=== PATIENT | male | born 1965 | race Caucasian/White ===

== ENCOUNTER 2017-01-24 07:46 | Day surgery (SDC) | payer OTHER ==
[~2017-01-24] VITALS: Ht 182.9 cm; Wt 76.9 kg
[~2017-01-24 07:46] MED LIST: CEPHALEXIN500 M1 PO; DOXYCYCLINE 10100 MG PO; NORCO 325 MG-51 TAB PO
[2017-01-24 08:08] VITALS: BP 124/95; PULSE 83; TEMP 97.8
[2017-01-24 09:25] VITALS: BP 108/82; PULSE 65; TEMP 97.8
[2017-01-24 09:40] VITALS: BP 117/71; PULSE 74
== END 2017-01-24 10:10 | disposition home or self-care (01) ==
LOC: SDCO 07:46
DX: Z12.11 Encounter for screening for malignant neoplasm of colon (principal); D12.5 Benign neoplasm of sigmoid colon; D12.8 Benign neoplasm of rectum; K57.30 Diverticulosis of large intestine without perforation or abscess without bleeding
CPT/HCPCS: J2250; J3010

== ENCOUNTER → 2018-03-25 | Outpatient (CLI) | payer BC | LOC: COL.LAB 11:58 | DX: Z87.891 Personal history of nicotine dependence (principal) ==

== ENCOUNTER 2020-11-17 06:05 | Day surgery (SDC) | payer BC ==
[~2020-11-17] VITALS: Ht 182.9 cm; Wt 68.1 kg
[2020-11-17] MEDS ORDERED: MULTIVITAMIN200 MCG PO (06:27)
[2020-11-17 06:28] VITALS: BP 115/89; PULSE 81; TEMP 97.8
[2020-11-17 08:20] VITALS: BP 111/82; PULSE 73; TEMP 97.9
--- NOTE | 2020-11-17 08:20 | NUR ---
Patient returned to bay 2 via cart. Patient is dowsy, wakes easily to name. Postop vital signs started and stable. Patient sitting up in chair, denies discomfort. Patient request pepsi and pudding. Will continue to monitor.
[2020-11-17 08:35] VITALS: BP 123/83; PULSE 72
[2020-11-17 08:50] VITALS: BP 109/84; PULSE 64
--- NOTE | 2020-11-17 08:50 | NUR ---
Patient is sitting up in chair. Vital signs remain stable. Physician came in room to speak with patient. Reviewed discharge instruction and education material with patient and family, both verbalized undertanding. D/C IV with no complications. Instructed patient to dress and then call for transportation.
--- NOTE | 2020-11-17 09:09 | NUR ---
Patient was transfered to personal vehicle by Renetta LOPEZ via wheelchair accompanied by significant other.
--- NOTE | 2020-11-17 09:10 | NUR ---
Patient is sitting up in chair, denies discomfort. Tolerating food and drink well. Vital signs remain stable. Will continue to monitor.
== END 2020-11-17 09:10 | disposition home or self-care (01) ==
LOC: SDCO 06:05
DX: Z12.11 Encounter for screening for malignant neoplasm of colon (principal); D12.0 Benign neoplasm of cecum; K63.5 Polyp of colon; K57.30 Diverticulosis of large intestine without perforation or abscess without bleeding; F17.210 Nicotine dependence, cigarettes, uncomplicated; Z20.822 Contact with and (suspected) exposure to COVID-19
CPT/HCPCS: J2704; J7030

== ENCOUNTER → 2021-04-23 | Outpatient (CLI) | payer BC ==
[~2021-04-23] MED LIST changes: +MULTIVITAMIN200 MCG PO
== END ==
LOC: MHCPAIN 09:45
DX: M47.812 Spondylosis without myelopathy or radiculopathy, cervical region (principal); M54.12 Radiculopathy, cervical region; G89.29 Other chronic pain
CPT/HCPCS: G0463

== ENCOUNTER → 2021-05-10 | Outpatient (CLI) | payer BC | LOC: MHCPAIN 09:21 | DX: M47.812 Spondylosis without myelopathy or radiculopathy, cervical region (principal); M54.12 Radiculopathy, cervical region | CPT/HCPCS: J1100; Q9967 ==

== ENCOUNTER → 2021-05-22 | Outpatient (CLI) | payer BC | LOC: MHCPAIN 14:38 | DX: M47.812 Spondylosis without myelopathy or radiculopathy, cervical region (principal); M54.12 Radiculopathy, cervical region; M25.511 Pain in right shoulder; M96.1 Postlaminectomy syndrome, not elsewhere classified | CPT/HCPCS: G0463 ==

== ENCOUNTER → 2021-08-21 | Outpatient (CLI) | payer BC | LOC: MHCPAIN 13:03 | DX: M47.892 Other spondylosis, cervical region (principal); M54.12 Radiculopathy, cervical region | CPT/HCPCS: G0463 ==

== ENCOUNTER 2021-11-28 11:28 | Inpatient (IN) | payer BC ==
[~2021-11-28] VITALS: Ht 182.9 cm; Wt 71.7 kg
--- NOTE | 2021-11-28 12:45 | NUR ---
ADMISSION NOTE DONE. PATIENT CAME IN AROUND 1245PM FROM [facility]. SPOUSE IS PRESENT. PATIENT ABLE TO UNDERSTAND BUT SPEECH IS AN ISSUE.PATIENT IS [place] IN BOTH EARS AND NEED TO SPEAK UP SLIGHTLY LOUDER THAN NORMAL. WEAK ON LEFT SIDE OF BODY.LUNG SOUND CLEAR BUT VERY SHALLOW BREATH. PATIENT IS A SMOKER (1 PACK A DAY AND CHEW) PATIENT HAS UPPER AND LOWER DENTURES(PARTICAL). TEST POSITIVE FOR DRUGS, HAD SUICIDE IDEA YESTERDAY BUT TODAY HE HAS NONE .SUICIDE QUESTION WAS ASK AND HE SCORE A MODERATE RISK. SPOKE WITH BOO AND INFORM DR ANTHONY THAT PATIENT WAS HERE. ORDER LUNCH FOR HIM. SKIN CLEAR, HAS TWO BANDAGE FROM IV SITE.CALL LIGHT IN REACH, BEDSTAND IN REACH. INSTRUCTED TO CALL IF THERE IS ANY CONCERN OR QUESTION.
[2021-11-28] MEDS ORDERED: ASPIRIN 81M81 MG/TA2 PO (13:01)
[2021-11-28] MEDS ORDERED: LIPITOR20 MG PO (13:02)
[2021-11-28] MEDS ORDERED: PLAVIX 75MG TAB75 MG PO (13:02)
--- NOTE | 2021-11-28 16:21 | NUR ---
PLACE A NICODERM PATCH ON RIGHT UPPER BACK. PATIENT IS AWARE THAT HE IS UNABLE TO SPOKE. DR ANTHONY INFORM THAT PSYCOLOGIST WILL BE SEENING PATIENT SINCE HE SCORE HIGH ON HIS SUICIDE SCREENING.
[2021-11-28 17:27] VITALS: BP 121/85; PULSE 95; TEMP 97.4
[2021-11-28 18:18] VITALS: BP 121/85; PULSE 95; TEMP 97.4
--- NOTE | 2021-11-28 18:30 | NUR ---
RECEIVED CHANGE OF SHIFT REPORT FROM DAY SHIFT RN. CONTINUES ON SUICIDE PRECAUTIONS, SITTER PRESENT DURING REPORT. PATIENT RESTING IN BED, FAMILY IN ROOM CURRENTLY, PERMITTED BY ADMIN WITH UNDERSTANDING THEY ARE TO LEAVE BEFORE 1999. EXIT ALARM ON.
--- NOTE | 2021-11-28 19:10 | NUR ---
PATIENT ON SUCICAL PRECAUTION,AIRPLANE TESTER IS AWARE AND SECURITY AWARE. ALL CLOTHS WAS TAKING OUT AND RODEO CLOWN BY SECURITY. CORD WAS WRAP UP. TRASH BAG CHANGE TO PAPERBACK. SPOUSE IS AWARE THAT HE IS ON PRECAUTION AND WILL CALL TOMORROW TO SEE IF SHE ABLE TO COME AND VISIT. I SAID TO CALL BEFORE COMING SINCE OF THE PRECAUTION. SHE UNDERSTOOD. FAMILY (SON,SON- AND PATIENT DAD CAME TO VISIT. WE SPOKE WITH HOLLIE AND SHE ONLY TONIGHT THEY CAN VISIT BUT A SHORT VISIT WITH SITTER. SPOUSE CAN STAY UNTIL 8PM BUT AFTER THAT SHE HAS TO LEAVE. PER KAIDEN, SHE WILL NOTIFIED SPOUSE ABOUT VISITING POLICY.
[2021-11-28 22:00] VITALS: BP 120/81; PULSE 101
--- NOTE | 2021-11-29 00:29 | NUR ---
SUICIDE PRECAUTIONS CONTINUES, SEE [facility] FOR DOCUMENTATION PER HOSP P/P. PATIENT SLEEPING WITH NONLABORED/EVEN RESPIRATIONS.
--- NOTE | 2021-11-29 02:55 | NUR ---
PATIENT WOKE UP AND USED URINAL AFTER SPEAKING WITH STAFF REGARDING URGE TO VOID. STAFF OBSERVED URINE DARK BUT PATIENT VOIDED LARGE AMOUNT. DENIED ANY OTHER NEEDS AT THIS TIME.
[2021-11-29 06:01] VITALS: BP 131/88; PULSE 90; TEMP 97.5
--- NOTE | 2021-11-29 07:23 | NUR ---
CHANGE OF SHIFT REPORT GIVEN TO DAY SHIFT RNSTEPHANIE.
--- NOTE | 2021-11-29 08:27 | NUR ---
REPORT RECEIVED FROM JOHN YOUNGER; PATIENT CURRENTLY SLEEPING AND HAS BEEN ALL NIGHT. PATIENT UNDER SUICIDE PRECAUTIONS AND REQUIRES SITTER AND 15 MINUTE CHARTING.
--- NOTE | 2021-11-29 09:44 | NUR ---
Initial visit attempt; Patient unable to respond at this time, Smart Energy Specialist left a card with patient's nurse offering Hope, Spiritual Care and God's blessings. I later spoke with family member who requested prayer for patient. Smart [employer] Specialist will do so.
--- NOTE | 2021-11-29 10:31 | NUR ---
LITZY met with the patient to complete intake, as the patient is new to [facility]. The patient is currently on suicide precautions. The patient lives in a house in [place] with his fiance, Kerry Perez (ph#[phone]). He states that he has three steps to get into his home and he has grab bars around the toliet and in the shower. He reports independence with ADLs and has a cane. The patient's primary care provider is Yaima Brown APRN and he receives his medications from [facility]. The patient does not have a DPOA-HC and he was not interested in completing one at this time. He states that he is not , but plans on marrying Kerry after he gets out of the hospital. He states that he has three children: Aníbal (ph#[phone]), Lonny, and Kimber. LITZY informed him how his children would be his legal next of kin. The patient verbalized understanding and is okay with this. The [facility] Doctor then entered the room.
--- NOTE | 2021-11-29 10:39 | NUR ---
VERBAL ORDER TO TAKE PT OFF OF OBSERVATION STATUS AND MOVE PT ROOM TO 338.
--- NOTE | 2021-11-29 10:47 | NUR ---
PT BELONGINGS MOVED TO ROOM 338, REPORT RECIEVED FROM JOHN BROWN. THIS RN WILL TAKE OVER PT CARE AT THIS TIME.
--- NOTE | 2021-11-29 13:13 | NUR ---
COMPLETE COLOSTOMY DRESSING CHANGE WAS DONE AT THIS TIME. FAMILY WAS AT BEDSIDE, EDUCATED ON HOW TO COMPLETE DRESSING/BAG CHANGES AT HOME.
--- NOTE | 2021-11-29 17:16 | NUR ---
PT RESTING IN BED WITH FAMILY AT BEDISDE. COMPLAINS OF ITHCHING TO ABDOMEN, MEDICATION GIVEN PER eMAR. WILL CONTINUE TO MONITOR.
[2021-11-29 17:26] VITALS: BP 124/84; PULSE 66; TEMP 97.5
[2021-11-30 05:31] VITALS: BP 107/72; PULSE 87; TEMP 97.4
--- NOTE | 2021-11-30 05:40 | NUR ---
pt has been sleeping most of shift, uses call light appropriately when he needs to void, using urinal as pt is very unsteady, no control of left side. bed exit alarm on, pt set alarm off x1 when he rolled over in bed and left leg fell to floor. RN had to wake him to help him reposition. noted in report no BM reported since 11/27, offered bowel movers @, pt refused, stated he doesn't feel constipated at this time. benadryl requested and given for itching x1
--- NOTE | 2021-11-30 06:49 | NUR ---
BEDSIDE REPORT DONE ORDER. PATIENT RESTING IN BED WITH CALL LIGHT IN REACH
--- NOTE | 2021-11-30 09:29 | NUR ---
Initial visit; Patient states he is doing a lot better today and was receptive to prayer this morning and requested that Director Of Student Financial Aid keep him in her prayers. Director Of Student Financial Aid will continue to look in on Anant.
--- NOTE | 2021-11-30 09:41 | NUR ---
Pt off the unit to work with OT
--- NOTE | 2021-11-30 10:10 | NUR ---
ASSESSMENT DONE ORDER. PATIENT CONTINUE TO BE WEAK ON LEFT SIDE. UNABLE TO SEE ON LEFT EYE. ABLE TO EAT WITH OUT ANY ISSUE. LUNG CLEAR IN ALL LOBES. BOWEL SOUND ACTIVE. PATIENT NEED 2 PERSON ASSISTANCE IN GETTING UP FROM BED. LEFT SIDE IS FLACCID.CALL LIGHTN IN REACH,
--- NOTE | 2021-11-30 11:07 | NUR ---
Pt with mild phlebitis to Right AC from previous IV. This IV was dc'd by the transferring hospital prior to IPR admission. Ice pack placed over right ac per Dr. Sandoval. Will continue to monitor
--- NOTE | 2021-11-30 16:31 | NUR ---
NOTICES PATIENT LEND TO HIS RIGHT ALOT. SIDE RAIL WAS PLACE UP FOR PERVENTION.
[2021-11-30 16:47] VITALS: BP 140/82; PULSE 92; TEMP 97.8
--- NOTE | 2021-11-30 18:58 | NUR ---
Significant other here to visit pt. She alerted nurse that pt had some bleeding scratches on his left arm. Dried blood cleaned from left forearm with normal saline. Multiple small abrasions noted from scratching. Transparent dressing applied over scratches to protect skin. Abrasions were not noted to have active bleeding. PRN Benadryl was administered approx 1 hr ago. Will continue to monitor
--- NOTE | 2021-11-30 19:45 | NUR ---
PT RESTING IN BED. GIRLFRIEND AT BEDSIDE. VERY SUPPORTIVE. PT FLACCID ON LT SIDE. PT DENIES ANY VISULA PROBLEMS. NICODERM PATCH TO LT SHOULDER BUT PT STILL WANTS A CIGARETTE. DENIES PAIN. CALL LIGHT IN REACH. BED ALARM SET.
--- NOTE | 2021-11-30 20:55 | NUR ---
PT HAS BEEN CALM AND COOPERATIVE TONIGHT. VTE ASA AND PLAVIX.
--- NOTE | 2021-12-01 00:24 | NUR ---
PT SLEEPING. NO DISTRESS.
[2021-12-01 05:35] VITALS: BP 113/79; PULSE 68; TEMP 98
--- NOTE | 2021-12-01 10:37 | NUR ---
PATIENT DOING WELL THIS MORNING. MORNING ASSESSMENTS COMPLETED. RASH NOTED TO MULTIPLE BODY SITES, TOPICAL CREAM APPLIED PER EMAR. TAKES MEDS WHOLE WITHOUT ISSUE. GOOD APPETITE. MODERATE LEFT SIDED WEAKNESS OBSERVED WITH TRANSFERS AND TOILETING. PATIENT REQUIRES 1-2 ASSIST WITH AMBULATING AND ADLS AT THIS TIME. PARTICIPATED IN THERAPY. CONTINENT OF B/B. A&O X4. VITALS WNL.
[2021-12-01 18:00] VITALS: BP 125/44; PULSE 93; TEMP 97.5
--- NOTE | 2021-12-01 19:08 | NUR ---
PT RESTING IN BED VISITING WITH BRENNAN. VERY SUPPORTIVE. LT SIDE FLACCID. NO VISUAL DEFICITS PER PT. DENIES PAIN. PT CALM AND COOPERATIVE. CALL LIGHT IN REACH. BED ALARM SET.
--- NOTE | 2021-12-01 20:50 | NUR ---
GAVE MELATONIN FOR SLEEP. PT STILL ITCHING QUITE A BIT. TOO SOON FOR BENADRYL.
--- NOTE | 2021-12-02 02:43 | NUR ---
PT SLEEPING. NO DISTRESS.
--- NOTE | 2021-12-02 05:54 | NUR ---
PT HAS SLEPT WELL THIS SHIFT. NO DISTRESS.
[2021-12-02 05:55] VITALS: BP 124/77; PULSE 84; TEMP 98.1
--- NOTE | 2021-12-02 06:48 | NUR ---
Shift report received from bilingual hr generalist RN
--- NOTE | 2021-12-02 09:46 | NUR ---
Pt resting supine in bed. HOB elevated approx 30 degrees. Pt. reported some itching to rash areas this morning. Benadryl was given, betamethasone crm. applied as ordered. He feels no change in the rash. No pain or discomfort. He denies additional needs at this time. Call light is within his reach. Bed alarm is on
--- NOTE | 2021-12-02 11:26 | NUR ---
Pt assisted up to recliner using platform walker. Pt. required max A of 2 people for dressing and transferring to chair. He denies pain/discomfort. Significant other is in the room to visit. Call light is within his reach
[2021-12-02 17:30] VITALS: BP 119/79; PULSE 94; TEMP 98.3
[2021-12-03 05:05] VITALS: BP 126/96; PULSE 92; TEMP 98.4
--- NOTE | 2021-12-03 05:20 | NUR ---
PT HAS SLEPT THROUGH THE NIGHT. NO DISTRESS.
[2021-12-03 06:30] LABS: BASO # 0.1 K/mm3 (0.0-0.2); BASO % 0.8 % (0.0-2.0); EOS # 0.5 K/mm3 (0.0-0.7); GRAN # 5.1 K/mm3 (1.4-6.5); GRAN % 65.3 % (42.2-75.2); HEMATOCRIT 46.2 % (42.0-52.0); HEMOGLOBIN 15.6 g/dl (13.5-18.0); LYMPH # 1.5 K/mm3 (1.2-3.4); LYMPH % 19.2 % (20.0-51.0); MEAN CELL VOLUME 91 fl (80.0-100.0); MEAN CORPUSCULAR HEMOGLOBIN 31 pg (27-31); MEAN CORPUSCULAR HGB CONC 34 g/dl (33.0-37.0); MEAN PLATELET VOLUME 10.9 fl (7.4-10.4); MONO # 0.6 K/mm3 (0.1-0.6); MONO % 8.1 % (1.7-9.3); PLATELET COUNT 221 K/mm3 (130-400); RED BLOOD COUNT 5.08 M/mm3 (4.20-5.60); REDCELL DISTRIBUTION WIDTH-CV 13.8 % (11.5-14.5)
[2021-12-03 07:08] LABS: ALBUMIN 3.3 gm/dL (3.5-5.0); BILIRUBIN,TOTAL 0.9 mg/dL (0.2-1.2); CALCIUM 9.1 mg/dL (8.4-10.2); CREATININE, serum 0.8 mg/dL (0.72-1.25); POTASSIUM 4.4 mmol/L (3.5-4.5); TOTAL PROTEIN 6.1 gm/dL (6.2-8.1)
--- NOTE | 2021-12-03 10:56 | NUR ---
LITZY met with the patient to follow up after the weekend. The patient states that he is doing alright. The patient states that the weekend was long, but he is liking therapy. He is hopeful to move forward and be able to go home soon. He states that he has a grandson that is due soon and a granddaughter's birthday is coming up. He had no concerns for LITZY at this time.
--- NOTE | 2021-12-03 13:55 | NUR ---
Admission QIM scores were reviewed by the team. Code of 3 chosen for eating was determined by team discussion to be the most usual performance for this patient during the assessment period. Code of 2 chosen for toilet hygiene was determined by team discussion to be the most usual performance for this patient during the assessment period. Code of 2 chosen for toilet transfers was determined by team discussion to be the most usual performance for this patient during the assessment period. Code of 3 for sit to stand was determined by team discussion to be the most usual performance for this patient during the assessment period. Code of 2 for chair/bed to chair transfers was determined by team discussion to be the most usual performance for this patient during the assessment period. Code of 2 chosen for walk 10 feet was determined by team discussion to be the most usual performance for this patient during the assessment period. Code of 3 chosen for wheel 50 feet w/ 2 turns was determined by team discussion to be the most usual performance for this patient during the assessment period.--Gisell West,
[2021-12-03 17:22] VITALS: BP 123/64; PULSE 94; TEMP 97
--- NOTE | 2021-12-03 19:30 | NUR ---
RECEVIED CHANGE OF SHIFT REPORT FROM DAY SHIFT RN. PEARCE AT BEDSIDE. BED EXIT ALARM ON WHILE IN BED, CALL LIGHT WITHIN REACH. REPORTS HAS ITCHING AND WANTING MEDS FOR ITCHING.
--- NOTE | 2021-12-04 01:36 | NUR ---
PATIENT UNABLE TO WAKE ENOUGH TO TAKE PRN BENADRYL AT THIS TIME.
[2021-12-04 05:44] VITALS: BP 130/54; PULSE 75; TEMP 97.5
--- NOTE | 2021-12-04 07:07 | NUR ---
CHANGE OF SHIFT REPORT GIVEN TO DAY SHIFT RNDORI.
--- NOTE | 2021-12-04 07:11 | NUR ---
BEDSIDE REPORT DONE ORDER. PATIENT RESTING IN BED WITH NO DISTRESS. CALL LIGHT IN REACH.
--- NOTE | 2021-12-04 09:22 | NUR ---
ASSESSMENT DONE ORDER. PATINET LUNG SOUND CLEAR. BOWEL SOUND ACTIVE IN ALL 4 QUADS. PATIENT STILL HAVE FLACCID ON LEFT SIDE. STILL HAVING HARD TIME SEEING WITH LEFT EYE. APPETITE GOOD EATING ABOUT 100% OF ALL HIS FOOD. BOWLE MOVEMENT TWO DAYS AGO. PATIENT IS AWARE TO TAKE MIRALEX ORDER. ABLE TO TAKE MEDICATION WITH OUT ANY ISSUE. PATIENT CONTINUE TO HAVE A RASH ON BODY AND HAS 3 CREAM TO HELP. CALL LIGHT IN REACH.
[2021-12-04 17:40] VITALS: BP 131/85; PULSE 87; TEMP 97.7
--- NOTE | 2021-12-04 18:19 | NUR ---
PRN ITCHING CREAM (HYDROCORTIONE) WAS GIVEN DUE TO INCREASE ITCHING ON RIGHT ELBOW AND FOLD. STOMACH AREA AND BACK AREA.
--- NOTE | 2021-12-04 18:37 | NUR ---
RECEIVED CHANGE OF SHIFT REPORT FROM DAY SHIFT RN.
--- NOTE | 2021-12-04 19:49 | NUR ---
OBSERVES L FACIAL DROOP WITH SOME SLURRED SPEECH, ABLE TO TAKE FOOD/THIN LIQUIDS WITH NO C/O OR CONCERNS VOICED. OBSERVED TAKES PILLS ONE AT A TIME WITH NO PROBLEMS. LUE FLACCID WITH LLE WEAKNESS. DENIES CHEST PAIN/SOA AT THIS TIME.
--- NOTE | 2021-12-04 20:02 | NUR ---
C/O R HAND PAIN, SEE MAR FOR TYLENOL GIVEN. DENIED ANY OTHER COMPLAINTS.
[2021-12-05 06:11] VITALS: BP 111/69; PULSE 76; TEMP 97.9
--- NOTE | 2021-12-05 07:20 | NUR ---
Change of shift report given to day shift RNJessica.
--- NOTE | 2021-12-05 07:27 | NUR ---
BEDSIDE REPORT DONE. PATIENT RESTING IN BED WITH CALL LIGHT IN REACH.
--- NOTE | 2021-12-05 07:58 | NUR ---
Pt. c/o itching. Rash areas still present to BUE, lower back, and right upper chest. PRN Benadryl given. Scheduled creams applied for itching. Will continue to monitor
--- NOTE | 2021-12-05 09:02 | NUR ---
ASSESSMENT DONE ORDER. PATIENT ALERTX 3 WITH NO PAIN NOTED. PATIENT LUNG CLEAR IN ALL LOBES. BOWEL SOUND ACTIVE IN ALL 4 QUAD. URINATED IN TOILET TODAY WITH 1 PERSON ASSISTANCE. PATIENT COMPLAIN OF RIGHT HAND PAIN LAST NIGHT BUT HAVE NOT SAID ANYTHING TODAY. P.T INFORM THAT PATIENT SEEM TO BE DEPRESSED TODAY AND THAT HIS SPOUSE CALL AND CHEWED HIM OUT ABOUT COMING HOME AND THEN CALLED BACK TO APPOLIGIES. DR ANTHONY AND TEAM IS AWARE. PATIENT ATE ABOUT 100% OF HIS BREAKFAST.
--- NOTE | 2021-12-05 09:26 | NUR ---
Pt. sitting up in recliner. Pt. assisted to bed at his request using hemiwalker, gait belt. He denies pain/discomfort. Denies further needs. Call light is within his reach
--- NOTE | 2021-12-05 15:21 | NUR ---
LITZY met with the patient to present and review the IPR Team Conference Note. The team plans to re-evaluate the patient next Friday. A discharge date has not been set yet. The team would like to set up a patient/family meeting for next Friday. The patient is in agreement to the plan and he requested that SW contact his fiance to set up the meeting. LITZY attempted to contact the patient's fiance, Kerry. LITZY left her a voicemail.
--- NOTE | 2021-12-05 15:41 | NUR ---
The patient's fiance, Kerry, returned LITZY's phone call. LITZY provided her with an update. Kerry is in agreement to the plan and the patient/family meeting was scheduled for next Friday at 1000. LITZY to notify the IPR team.
[2021-12-05 16:50] VITALS: BP 118/82; PULSE 90; TEMP 97.8
--- NOTE | 2021-12-05 19:05 | NUR ---
RECEIVED CHANGE OF SHIFT REPORT FROM DAY SHIFT RN. PATIENT RESTING IN BED, FIANCE AT BEDSIDE, EXIT ALARM ON WITH CALL LIGHT WITHIN REACH.
[2021-12-06 04:59] VITALS: BP 130/82; PULSE 75; TEMP 97.7
--- NOTE | 2021-12-06 07:22 | NUR ---
BEDSIDE REPORT DONE. PATIENT AWARE EATING THIS MORNING. NO DISTRESS NOTED.
--- NOTE | 2021-12-06 08:51 | NUR ---
ASSESSMENT DONE ORDER. PATIENT ALERT X 3 ABLE TO MAKE NEEDS KNOW. PATIENT IN NO PAIN BUT JUST WANT TO SLEEP. NEW MEDICATION LAST NIGHT ZOLOFT WAS GIVEN AND PER NIGHT NURSE, IT HELP HIM TO RELAX . LUNG SOUND CLEAR IN ALL LOBES. BOWEL SOUND ACTIVE IN ALL 4 QUAD. PATIENT NEED 1 PERSON ASSISTANCE IN WHEELCHAIR BUT 2 PERSON WALKING WITH WALKER. PATIENT STILL UNABLE TO MOVE LEFT ARM(FLACCID). CALL LIGHT IN REACH,
[2021-12-06 16:36] VITALS: BP 137/95; PULSE 95; TEMP 98
--- NOTE | 2021-12-06 16:47 | NUR ---
Pt assisted to toilet using hemiwalker. Assist x 2 with SBA-CGA. He denies pain or discomfort. Pt assisted to bed at his request. Denies additional needs. Call light is within his reach
--- NOTE | 2021-12-06 17:58 | NUR ---
Pt was weighed today and noted to have an approximate 20 lb weight loss difference. Admission weight was reported as 174 lbs by significant other and recorded into assessment. Last weight recorded on [facility] discharge summary was 69.9 kg. Today's weight was 70.1 kg. Unable to modify admission weight
--- NOTE | 2021-12-06 21:51 | NUR ---
PT RESTING IN BED. WATCHING TV. DENIES NEEDS. RASH IS BETTER NOW. OINTMNET APPLIED. LT SIDED WEAKNESS CONTINUES. CALL LIGHT IN REACH. BED ALARM SET.
--- NOTE | 2021-12-07 00:30 | NUR ---
ASSISTED PT TO W/C THEN TO TOILET. PT ABLE TO STAND AND SUPPORT SELF ON SAFETY BAR AND TURN TO TOILET AND SIT DOWN. NEEDED ASSIST WITH CLOTHING. BACK TO BED. PT ABLE TO LIFT LEGS INTO BED WITH TOUCH SUPPORT. CALL LIGHT IN REACH. BED ALARM SET.
[2021-12-07 06:07] VITALS: BP 116/79; PULSE 75; TEMP 98.1
--- NOTE | 2021-12-07 15:03 | NUR ---
Kami: No restorationist preference Situation: Motor Equipment Lieutenant was requested to room Background: PT is content and resting Assessment: PT asked for prayer, refrigerator glazier prayed and Pt appreciated the visit Recommendation: refrigerator glazier will follow up as needed
[2021-12-07 17:24] VITALS: BP 124/77; PULSE 79; TEMP 97.8
--- NOTE | 2021-12-07 18:08 | NUR ---
FAMILY MEMBER BROUGHT IN "QUITGO" SMOKING CESSATION PEN FOR PATIENT. PATIENT RESTLESS DUE TO BEING UNABLE TO SMOKE. PEN IS SMOKELESS, VAPRELESS, AND CONTAINS NO NICOTINE. CALL PLACED TO YANA TO VERIFY THIS WAS OK TO ALLOW PATIENT TO USE.
[2021-12-08 05:44] VITALS: BP 127/99; PULSE 74; TEMP 98.5
--- NOTE | 2021-12-08 07:20 | NUR ---
Shift report received from material handler 1st shift RN
--- NOTE | 2021-12-08 08:30 | NUR ---
Pt. reporting that he is feeling "upset about how he was talked to yesterday" by a Phys. therapist. Pt. stating he was told to "stop thinking about home" and "stop thinking about what you have at home" and that his "thoughts about home is interfering with his progress". Pt. feels that his thoughts about home are helping with his progress and that it is a goal he can focus on. Spoke with pt. about having someone from PT dept. speak to him about his concerns today. Charge nurse notified. Will notify IPR director
--- NOTE | 2021-12-08 11:03 | NUR ---
Follow-up visit; Patient thanked Licensed Pharmacist for looking in on him and offering "The Lord's Prayer," and a [place] for healing. James states he is feeling a lot better and stronger. Licensed Pharmacist listened and offered encouragement and will look in on him again while he is a patient.
--- NOTE | 2021-12-08 13:59 | NUR ---
Pt resting in bed. HOB elevated approx 30 degrees. Significant other at the bedside. Pt. denies pain/discomfort. Denies additional needs. Call light is within his reach
[2021-12-08 17:55] VITALS: BP 128/87; PULSE 89; TEMP 97.5
[2021-12-09 05:37] VITALS: BP 132/81; PULSE 74; TEMP 97.6
--- NOTE | 2021-12-09 06:47 | NUR ---
Shift report received from shift production associate RN.
--- NOTE | 2021-12-09 09:26 | NUR ---
Pt up to ambulate in hallway with nurse using gait belt and sylvia walker. LUE sling on. Pt. reporting pain in right hand. He states the pain is chronic from an old fx and surgery. Pt. assisted to bed after ambulating. Call light is within his reach. Bed alarm is on
--- NOTE | 2021-12-09 15:22 | NUR ---
Pt. resting supine in bed. Father and fiance in room to visit. Pt. denies pain/discomfort. Denies itching to improving rash areas. Denies further needs. Call light is within his reach. Bed alarm is turned on
[2021-12-09 18:16] VITALS: BP 134/82; PULSE 92; TEMP 98.4
--- NOTE | 2021-12-09 19:00 | NUR ---
RECEIVED CHANGE OF SHIFT REPORT FROM DAY SHIFT RN. PATIENT RESTING IN BED WITH FIANCE AT BEDSIDE, EXIT ALARM ON WHEN IN BED WITH CALL LIGHT WITHIN REACH. NO NEEDS REPORTED DURING REPORT.
[2021-12-10 05:22] VITALS: BP 120/80; PULSE 66; TEMP 97.6
--- NOTE | 2021-12-10 07:00 | NUR ---
CHANGE OF SHIFT REPORT GIVEN TO DAY SHIFT RNDORI.
--- NOTE | 2021-12-10 07:01 | NUR ---
BEDSIDE REPORT DONE. PATIENT RESTING IN BED WITH NO DISTRESS NOTED. CALL LIGHT IN REACH
--- NOTE | 2021-12-10 08:30 | NUR ---
ASSESSMENT DONE ORDER. PATIENT IS ALERT X3 WITH NO PAIN NOTED. PATIENT LUNG CLEAR IN ALL LOBES. BOWEL SOUND ACTIVE IN ALL 4 QUADS. PATIENT ONLY ATE ABOUT 10% OF BREAKFAST. TOOK ALL MEDICATION ORDER. PATIENT INFORM ME THAT HE WAS VERY UPSET THE OTHER DAY REGARDING PHYSICAL THERAPY . HE STATED THAT HE REFUSED TO WORK WITH HER AND REQUESTING ANOTHER PT. AT THIS TIME WE DONT HAVE ANOTHER PT AND I EXPLAIN THAT TO HIM. HE STILL REFUSED TO WORK WITH PT TODAY BUT ABLE TO WORK WITH SP AND OT. CALL LIGHT IN REACH.
--- NOTE | 2021-12-10 09:45 | NUR ---
SPOKE WITH EFFICIENCY EXPERT REGARDING PATIENT CONCERN REGARDING PT. THEY SWITCH HIM WITH MARLENE ([place]) TODAY
--- NOTE | 2021-12-10 10:56 | NUR ---
Follow-up visit; Patient states he is doing well and always glad to see and was receptive to a [place] this morning. offered a blessing from Numbers [phone] and will continue to visit Anant while he remains here at our hospital.
--- NOTE | 2021-12-10 14:45 | NUR ---
PATIENT ASK FOR AN ATIVAN TODAY AND STATED THAT HE JUST WANT TO SLEEP AND FEELS ANXIETY. I GAVE HIM THE ATIVAN ORDER. EXPLAIN TO CALL IF NEEDED. CALL LIGHT IN REACH. BED ALARM IS ON AND BED IS ON THE LOWEST POSTION
--- NOTE | 2021-12-10 15:09 | NUR ---
market garden worker attempted to meet with patient, check in and introduce myself. Patient on the phone. Will attempt at a later time.
[2021-12-10 17:08] VITALS: BP 132/87; PULSE 95; TEMP 98.3
--- NOTE | 2021-12-10 19:05 | NUR ---
RECEIVED CHANGE OF SHIFT REPORT FROM DAY SHIFT RN. PATIENT RESTING IN BED WITH FIANCE AT BEDSIDE DURING REPORT. DENIES ANY NEEDS DURING REPORT. EXIT ALARM ON WHILE IN BED WITH CALL LIGHT WITHIN REACH.
[2021-12-11 03:58] VITALS: BP 119/78; PULSE 74; TEMP 97.8
--- NOTE | 2021-12-11 07:08 | NUR ---
BEDSIDE REPORT DONE ORDER.PATIENT IN BED WITH EYE CLOSED WITH NO DISTRESS NOTED. CALL LIGHT IN REACH.
--- NOTE | 2021-12-11 07:11 | NUR ---
CHANGE OF SHIFT REPORT GIVEN TO DAY SHIFT RNDORI.
--- NOTE | 2021-12-11 08:38 | NUR ---
ASSESSMENT DONE ORDER. PATIENT IN BED RESTING WAITING FOR PHYSICAL THERAPY. PATIENT IS ALERT X 3 WITH NO MEMEMORY ISSUE. PATIENT CONTINUE TO BE WEAK ON LEFT SIDE. PATIENT UNABLE TO SQUEEZE HAND FULLY BUT ABLE TO SQUEEZE ALITTLE OF IT. LEFT LEG ABLE TO MOVE UP AND DOWN WITH STILL SLIGHT ISSUE WITH WALKING. PATIENT IS ABLE TO USE 1 PERSON ASSISTANCE WITH GAIT BELT AND SHAYNA PLATFORM WALKER. PATIENT CONTINUE TO HAVE ISSUE WITH SLEEP. SPOKE WITH DR ANTHONY REGARDING IT. CALL LIGHT IN REACH.
--- NOTE | 2021-12-11 13:12 | NUR ---
Follow-up "Miracle"; Patient using telephone, offered God's blessings for which he thanked .
--- NOTE | 2021-12-11 15:43 | NUR ---
family day care worker met with patient to introduce myself. No questions or concerns at this time.
--- NOTE | 2021-12-11 17:16 | NUR ---
PATIENT ASK FOR ATIVAN AROUND 2 PM AND I GAVE IT TO HIM, 1 HOUR LATER, PATIENT WAS ASKING FOR ATIVAN AGAIN. SPOKE WITH DR ANTHONY AND HE SAID TO HOLD OFF UNTIL HE CHECK TO SEE IF HE ABLE TO GET SOMETHING ELSE. 1 HOUR LATER, PATIENT STATED THAT HE STILL CAN'T SLEEP AND WANTED THE OTHER ATIVAN. SPOKE WITH DR ANTHONY AND HE AUTHORIZE 1MG ATIVAN NOW AND THAT HE MIGHT CHANGE MEDICATION FOR TONIGHT. MEDICATIONW GIVEN ORDER
[2021-12-11 17:30] VITALS: BP 134/91; PULSE 99; TEMP 98.6
[2021-12-11 18:46] VITALS: BP 160/85; PULSE 98; TEMP 98.6
--- NOTE | 2021-12-11 18:54 | NUR ---
635pm night nurse and I was in another room given report. WE HEARD NOISES AND FOUND PATINET ON THE FLOOR NEAR THE BATHRROOM DOOR AND THE PATIENT ROOM. PATIENT STATED THAT HE SAT DOWN ON THE GROUND AND COULDN'T GETT UP. PATIENT WAS ON HIS LEFT SIDE WITH ARM BEHIND HIS BACK. WE PLACE GAIT BELT ON PATIENT. ASSESS HIM AND PATIENT SAID NO INJURY AND I DID NOT HIT MY BACK OR HEAD. I JUST SAT DOWN ON FLOOR. WE PICK PATIENT UP AND WALK HIM BACK TO BED. DID A ASSESSMENT ON BODY AND THERE WAS NO OPEN AREA NOTED. PATIENT WAS JOKING AROUND WHEN WE WERE GETTING VITALS. EDUCATED PATIENT TO CALL WHEN HE NEEDED SOMETHING. PATIENT UNDERSTOOD. UNSURE IF BED ALARM WAS ON OR NOT. IT DID NOT TURN ON. BEFORE LEAVING, WE PLACE THE BED ALARM ON AND THE LIGHT WAS SHOWING GREEN. CALL LIGHT IN REACH.
--- NOTE | 2021-12-11 18:57 | NUR ---
curb supervisor, Surgical Charge Nurse, Dr. Sandoval, and Nisha (pt's significant other) notified of patient's fall
--- NOTE | 2021-12-11 19:49 | NUR ---
RECEIVED CHANGE OF SHIFT REPORT FROM DAY SHIFT RN. PATIENT FOUND ON FLOOR, PATIENT STATED HE DID NOT FALL, SAT HIMSELF DOWN, DID NOT HIT HIS HEAD OR INJURY ANY PART OF HIS BODY. REPORTED HE DID SIT DOWN ON HIS "BUTT". PATIENT CHECKED FOR SURFACE INJURIES, NONE FOUND ON VISUAL EXAM, PERFORMED BY X3 RNs. VS CHECK, SEE [facility]. PROVIDER, NILSON AMIN, CHARGE NURSE NOTIFIED BY DAY SHIFT RNs.
[2021-12-12 01:32] VITALS: BP 128/87; PULSE 70; TEMP 97.4
--- NOTE | 2021-12-12 01:37 | NUR ---
PATIENT UP IN BATHROOM, FINISHED VOIDING, STAFF ASKED IF PATIENT WAS DONE, PATIENT VERBALIZED YES, WHEN DOOR OPENED, PCT/NURSING OBSERVED PATIENT WAS ATTEMPTING TO STAND/GAIT BELT IN PLACE/NONAFFECTED HAND ON HANDRAIL, PATIENT PITCHED FORWARD, STAFF ABLE TO CUSHION PATIENT'S HEAD DURING FORWARD FALL WITH SOFT IMPACT TO DOORFRAME TO LEFT SIDE OF SKULL, PATIENT ENDED UP ON FLOOR, -LIKE POSITIONING. PATIENT DENIES PAIN TO SELF, NO BODY/HEAD SURFACE INJURIES OBSERVED, DENIES PAIN WITH MOVEMENT TO EXTREMITIES OR PALPATION TO SKULL. SPEECH UNCHANGED, FOLLOWS COMMANDS. VS TAKEN, SEE [facility]. INFORMED ONCALL HOSP PROVIDER. NO NEW ORDERS GIVEN AT THIS TIME.
[2021-12-12 04:43] VITALS: BP 127/93; PULSE 83; TEMP 97.7
--- NOTE | 2021-12-12 06:56 | NUR ---
Shift report received from assembler 1st shift RN
--- NOTE | 2021-12-12 06:59 | NUR ---
CHANGE OF SHIFT REPORT GIVEN TO DAY SHIFT RNCARINE.
--- NOTE | 2021-12-12 08:35 | NUR ---
Pt sleeping in left side lying position in bed. He reports that his legs have been feeling wobbly since last night. Pt. is concerned that his falls x 2 will alter the course of his IPR stay. Spoke with pt. about the importance of calling for help before attempting to get out of bed. Pt. verbalized understanding and stated that he feels afraid of falling again. Call light is within his reach. Bed alarm is on
--- NOTE | 2021-12-12 10:05 | NUR ---
Follow-up visit; Patient thanked Puppy Walker for offering prayer again today and stated he would not give up. Puppy Walker offered encouragement and truthfully stated she had seen a marked improvement every time she sees him. Puppy Walker wishes him well and will follow up.
--- NOTE | 2021-12-12 11:34 | NUR ---
Pt off the unit to work with OT
--- NOTE | 2021-12-12 16:43 | NUR ---
SW attended family meeting with the patient and his life partner Kerry. Also in attendance is the MD, IPR director, PT,OT and ST. Team discussed the patient's progress as well as barriers that he is facing. Team discussed at length about his safety awareness and that recovering from a stroke will take time. Patient is still experiencing impulsivity which is resulting in falls. All questions answered by MD. Agreement made to reteam the patient next week for a possible discharge date.
[2021-12-12 16:49] VITALS: BP 127/67; PULSE 81; TEMP 98.9
--- NOTE | 2021-12-13 05:09 | NUR ---
pt ambulated to restroom with assist of this RN using quad cane, arm sling, shoes with brace on left foot and gait belt, voided and returned to bed w/o difficulty. pt slept well tonight after trazadone and melatonin given @[facility]. no c/o pain, discomfort or anxiety
[2021-12-13 05:16] VITALS: BP 115/62; PULSE 78; TEMP 97.6
--- NOTE | 2021-12-13 16:09 | NUR ---
SW met with patient to present him with the Team Conference notes. This SW verbally review the notes with the patient and left a hard copy with him. SW had a long discussion with the patient about his progress, the frustrations he is feeling and his desire to get back home. Encouragement provided to the patient as well as education as to why asking for help is important.
[2021-12-13 17:24] VITALS: BP 128/76; PULSE 89; TEMP 98.5
--- NOTE | 2021-12-13 20:00 | NUR ---
ASSISTED PT TO BR WITH CANE. PT HAS LEFT SIDED WEAKNESS. PT ABLE TO MANAGE CLOTHING. BACK TO BED. PT ABLE TO LIFT LEGS INTO BED. CALL LIGHT IN REACH. BED ALARM SET.
[2021-12-14 05:42] VITALS: BP 143/74; PULSE 65; TEMP 97.7
--- NOTE | 2021-12-14 14:57 | NUR ---
Attempt made to contact Nisha to arrange home visit next week and to see if she would be available for Friday at 0930. Message left. SW met with patient to inform of day/time. Patient denies offer to me to call his father with time, stating that he will call. Message left on the patients board with date and time of home visit.
[2021-12-14 17:50] VITALS: BP 143/87; PULSE 80; TEMP 98.6
--- NOTE | 2021-12-14 21:33 | NUR ---
PT RESTING IN BED. PT EXCITED ABOUT HOME VISIT COMING UP. CHEERFUL MOOD. LT ARM FLACCID. LT LEG VERY WEAK. NO PAIN. CALL LIGHT IN REACH. BED ALARM SET.
[2021-12-15 05:23] VITALS: BP 127/73; PULSE 83; TEMP 98.2
--- NOTE | 2021-12-15 06:50 | NUR ---
Shift report received from shift boss RN. Pt. awake and lying in bed. He denies pain/discomfort. Call light is within his reach. Bed alarm is on
--- NOTE | 2021-12-15 09:31 | NUR ---
Pt. resting in side lying position in bed. He is feeling excited about an upcoming home eval and is feeling ready to discharge. Pt. also excited that his father will come to help care for him after discharge. Pt. denies pain/discomfort. Denies additional needs. Call light is within his reach. Reminded pt. to call for help before trying to get up on his own. Pt. v/u. Bed alarm is on
--- NOTE | 2021-12-15 16:30 | NUR ---
Bed alarm sounding. This nurse entered pt's room and observed that his legs were hanging over the edge of the bed (as if pt was going to sit up at edge of bed). Pt's fiance stating "he is wanting to put on his shoes and walk out of here". This nurse asked the pt, "Did something happen?" and pt stated, "Yes". When asked if he wanted to discuss the situation pt replied no. This nurse advised the pt that I would get the charge nurse to come and discuss things with him. Pt then stated, "I'm not going anywhere. I promise". Pt reminded to call for help before getting out of bed and to not try to get up without assistance. Pt. verbalized understanding. Pt then asked for a cup of ice water. Ice water provided. Fiance remains at the bedside. Call light is within his reach. Bed alarm is turned on
--- NOTE | 2021-12-15 17:56 | NUR ---
This nurse was in room to assist pt with going to the bathroom. Pt. expressed that he is feeling thankful for "everything that everyone has done for him". Pt is looking forward to discharging home.
[2021-12-15 18:02] VITALS: BP 134/82; PULSE 85; TEMP 97.7
--- NOTE | 2021-12-15 20:30 | NUR ---
PT RESTING IN BED. CALM AND COOPERATIVE. PT RELATES WAS ANGRY AT HIS SON EARLIER TODAY AND WAS GOING TO LEAVE THE HOSPITAL. PT RELATED HE WOULD HAVE NOT DONE THAT TO AFFECT HIS RECOVERY. LT ARM FLACCID. LLE WEAK. SEE MAR FOR SLEEP AID GIVEN. CALL LIGHT IN REACH. BED ALARM SET.
[2021-12-16 05:22] VITALS: BP 120/79; PULSE 66; TEMP 97.4
--- NOTE | 2021-12-16 06:49 | NUR ---
Shift report received from night custodian RN
--- NOTE | 2021-12-16 08:25 | NUR ---
Nurse in to assist pt. to toilet. Pt. apologetic about stating he wanted to leave yesterday. Pt. stated that he was "mad at Nisha, mad at my son". Pt. also stated "I would never just walk out of here". Pt. assisted back to bed after toileting. HOB elevated approx 45 degrees for breakfast. Breakfast tray set up for pt. Pt. denies further needs. Call light is within his reach. Bed alarm is on
--- NOTE | 2021-12-16 13:23 | NUR ---
Pt up to ambulate in hallway with nurse using cane and gait belt. Pt. ambulated approx 50 ft. Pt. assisted back to bed at his request. His father is at the bedside to visit. Pt. denies pain/discomfort. Denies additional needs. Call light is within his reach. Bed alarm is on
--- NOTE | 2021-12-16 16:21 | NUR ---
Pt requesting to go walking in hallway again. Pt walked approx 40 ft with cane and gait belt. CGA provided by CLINICAL PROFESSOR. Pt. assisted back to bed after walking. His father remains at the bedside. Pt. denies further needs. Call light is within his reach. Bed alarm is on
[2021-12-16 17:00] VITALS: BP 128/96; PULSE 96; TEMP 98.6
--- NOTE | 2021-12-16 17:14 | NUR ---
Pt reports feeling anxious. Fiance and father are at the bedside. Spoke with pt about prn anxiety medication. Pt. stated, "I'd like to take it but I don't want it to count against me". Discussed with pt. that the Ativan dose has been decreased and discussed the importance of fall prevention after taking this medication. Pt. verbalized understanding and was agreeable to taking PRN Ativan at this time. Bed alarm is on. Call light is within his reach
--- NOTE | 2021-12-16 20:00 | NUR ---
PT RESTING IN BED. ASSISTED TO BR WITH CANE CGA. VOIDED. REPORTED HAD BM TODAY. PT ABLE TO MANAGE TOILETING TASKS. NO NEEDS AT THIS TIME. CALL LIGHT IN REACH.
[2021-12-17 05:17] VITALS: BP 139/81; PULSE 86; TEMP 97.7
--- NOTE | 2021-12-17 06:51 | NUR ---
Shift report received from rn shift mgr RN. Pt. sleeping in right side lying position. Call light is within reach. Bed alarm is on
--- NOTE | 2021-12-17 12:06 | NUR ---
Pt up to ambulate in hallway with nurse using PEG wallace. Pt ambulated approx 40 ft. Pt currently sitting up in bed eating lunch. Denies pain/discomfort. Reminded pt. not to get up w/out calling for assistance. Pt. verbalized understanding. Call light is within his reach. Bed alarm is on
--- NOTE | 2021-12-17 16:21 | NUR ---
Pt was on the phone arguing with his father. Pt. reporting increased anxiety and pain in his right hand. Anxiety medication and Tylenol requested and admininistered. Call light is within his reach. Bed alarm is on
[2021-12-17 17:39] VITALS: BP 134/86; PULSE 84; TEMP 98.4
[2021-12-18 06:01] VITALS: BP 141/84; PULSE 73; TEMP 97.7
--- NOTE | 2021-12-18 06:57 | NUR ---
BEDSIDE REPORT DONE ORDER. PATIENT RESTING IN BED WITH NO DISTRESS NOTED. BED ALARM ON ORDER.
--- NOTE | 2021-12-18 09:34 | NUR ---
ASSESSMENT DONE TODAY. PATIENT ALERT X 4 WITH NO ISSUE WITH MEMORY. PATIENT ATE ABOUT 100% OF HIS BREAKFAST. REFUSED HIS ENSURE. LUNG SOUND CLEAR IN ALL LOBES. BOWEL SOUND ACTIVE IN ALL 4 QUADS. URINE VOID WITH NO HELP. YELLOW UNINE NOTED. PATIENT USE CANE FOR STABILITY AND HAS BEEN DOING PUTTER GOOD.
--- NOTE | 2021-12-18 13:20 | NUR ---
Follow-up visit; Patient thanked Body Coverer for offering a prayer of thanksgiving for the improvement he has made with God's help and the help of his PT Team. Anant appears better emotionally but tired. Hopefully he will be going home soon.
--- NOTE | 2021-12-18 13:43 | NUR ---
LITZY met with the patient to introduce oneself and to follow up. He had his home evaluation today. He states that the home eval went very well and he is eager to get home. The team has set a tentative discharge date for this Friday, 12/21, with outpatient PT/OT/ST. The patient is in agreement to the plan. LITZY informed him of the options of outpatient therapy at [facility] or in [place]. The patient would like to pursue with outpatient therapy at [facility]. He had no other questions or concerns for LITZY. LITZY to schedule the outpatient therapy appointments for the patient.
--- NOTE | 2021-12-18 16:33 | NUR ---
LITZY contacted [facility] and secured the patient an ST appointment on 12/24 at 1345, PT on 12/24 at 1515, and OT on 12/31 at 1600. LITZY to notify the community health agent of the appointments. Orders will need to be faxed to [facility].
[2021-12-18 17:55] VITALS: BP 136/99
--- NOTE | 2021-12-18 23:22 | NUR ---
PT COMPLAINS OF HAND PAIN FROM PREVIOUS INJURIES PRIOR TO HOSPITALIZATION. TYLENOL REJECTED. UPON OFFER TO REQUEST STRONGER PAIN MEDICATION FROM COVERING PROVIDER, PT GETS ANXIOUS STATING HE DID NOT WANT TO RISK STAYING LONGER IN THE HOSPITAL DUE TO PAIN MANAGEMENT NEEDS. PT STATES "I WILL MANAGE, I WANT TO DISCHARGE THIS WEEK. DON'T CALL THE DOCTOR". WILL CONTINUE TO MONITOR.
[2021-12-19 05:59] VITALS: BP 147/87; PULSE 90; TEMP 97.9
--- NOTE | 2021-12-19 07:45 | NUR ---
PATIENT COMPLAINING OF TOP HEAD PAIN 01/19. PATIENT STATED THE TYLENOL DID NOTHING FOR HIS PAIN. WILL INFORM MD.
--- NOTE | 2021-12-19 08:20 | NUR ---
INFORMED MD OF PATIENTS EARLIER COMPLAINTS. NEW PAIN MEDS ORDERED WELL LABS AND CT HEAD.
--- NOTE | 2021-12-19 08:43 | NUR ---
PHARMACY BROUGHT PATIENT VOLTAREN OINTMENT. AFTER DOSE GIVEN PLACED IN PATIENT SPECIFIC RETAIL PHARMACY TECHNICIAN MED ROOM.
[2021-12-19 09:20] LABS: BASO % 0.3 % (0.0-2.0); EOS # 0.4 K/mm3 (0.0-0.7); EOS % 3.9 % (0.0-4.0); GRAN # 7.3 K/mm3 (1.4-6.5); GRAN % 78.4 % (42.2-75.2); HEMATOCRIT 47.8 % (42.0-52.0); HEMOGLOBIN 16.4 g/dl (13.5-18.0); LYMPH # 0.8 K/mm3 (1.2-3.4); LYMPH % 8.5 % (20.0-51.0); MEAN CELL VOLUME 90 fl (80.0-100.0); MEAN CORPUSCULAR HEMOGLOBIN 31 pg (27-31); MEAN CORPUSCULAR HGB CONC 34 g/dl (33.0-37.0); MEAN PLATELET VOLUME 10.4 fl (7.4-10.4); MONO # 0.8 K/mm3 (0.1-0.6); MONO % 8.3 % (1.7-9.3); PLATELET COUNT 183 K/mm3 (130-400); REDCELL DISTRIBUTION WIDTH-CV 14.1 % (11.5-14.5)
[2021-12-19 09:39] LABS: ALBUMIN 3.6 gm/dL (3.5-5.0); BILIRUBIN,TOTAL 1.3 mg/dL (0.2-1.2); CALCIUM 9.6 mg/dL (8.4-10.2); CREATININE, serum 0.8 mg/dL (0.72-1.25); POTASSIUM 4.1 mmol/L (3.5-4.5)
--- NOTE | 2021-12-19 09:52 | NUR ---
CALLED CT; THEY STATED AT THIS TIME THEY ARE CURENTLY DOING A PROCDEURE AND THEN AFTERWARDS HAVE MULTIPLE ER PATIENTS FIRST. SHIVA LOOKING AT AFTER NOON FOR CT. TECH STATED THEY WILL CALL WITH UPDATE LATER.
--- NOTE | 2021-12-19 11:30 | NUR ---
PATIENT CURRENTLY RESTING IN BED, BED ALARM ON. ALL BELONGINGS/ CALL LIGHT/ WATER/PHONE WITHIN REACH.
--- NOTE | 2021-12-19 11:55 | NUR ---
LITZY met with the patient to present and review the IPR Team Conference Note. The team has set a tentative discharge date for this Friday, 12/21, with outpatient PT/OT, pending the patient's CT scan comes back normal. ST is no longer recommending outpatient ST. The patient is in agreement to the plan and confirms he wanted therapy set up at [facility]. He had no questions or concerns for SW. LITZY contacted the patient's fianceKerry, and updated her on the above. She is in agreement to the plan. LITZY contacted [facility] and canceled the ST appointment. LITZY informed the equal opportunity counselor of the PT/OT appointments.
--- NOTE | 2021-12-19 13:01 | NUR ---
Follow-up: Anant doing well today and is feeling very thankful to possibly going home [place]. offered congratulations and [place] and will see him before he leaves.
--- NOTE | 2021-12-19 13:48 | NUR ---
CT CALLED. ASKED FOR UPDATE ON POSSIBLE TIME. INFORMED THEM PATIENT CURRENTLY WITH THERAPY BUT I WAS CHECKING BACK IN FROM PREVIOUS CALL. THEY STATED THEY ARE IN THE MIDDLE OF A CURRENT PROCDEURE AND TO CALL BACK.
--- NOTE | 2021-12-19 14:35 | NUR ---
CALLED CT AGAIN. INFORMED HER PATIENTS THERAPY IS COMPLETE, AND I WAS HOPING TO GET AN ETA FOR WHEN WE CAN DO THE CT HEAD. SHE SAID THEY ARE IN THE MIDDLE OF A PROCEDURE AND SHE WOULD CALL ME WHEN THEY ARE DONE. AGAIN GAVE M EXTENSION FOR CALL BACK.
[2021-12-19 17:04] VITALS: BP 130/70; PULSE 100; TEMP 98.3
--- NOTE | 2021-12-19 17:27 | NUR ---
PATIENT AGAIN BEGAN TO YELL ABOUT A SHOWER , ABLE TO CALM HER. INFORMED HER ITS TIME FOR DINNER AND SHE WILL SHOWER AGAIN IN THE MORNING, SHE DOES DAILY. LAID DOWN AND CURRENTLY RESTING. BED ALARM ON
--- NOTE | 2021-12-19 20:00 | NUR ---
PT AMB IN HALLWAY WITH CANE AND MACHINE CLOTH TRIMMER SBA. MIRI WELL.
[2021-12-20 05:45] VITALS: BP 139/82; PULSE 101; TEMP 97.8
--- NOTE | 2021-12-20 05:45 | NUR ---
PT HAD QUIET UNEVENTFUL NIGHT.
--- NOTE | 2021-12-20 06:47 | NUR ---
BEDSIDE REPORT DONE ORDER. PATIENT RESTING IN BED WITH NO DISTRESS.
--- NOTE | 2021-12-20 09:55 | NUR ---
ASSESSMENT DONE ORDER. PATIENT ALERT WITH NO MEMORY ISSUE. LUNG SOUND CLEAR IN ALL LOBES. BOWEL SOUND ACTIVE IN ALL 4 QUADS. PATIENT COMPLAIN OF HEADACHE TODAY AND FLOISET WAS GIVEN ORDER. PATIENT ABLE TO GET UP WITH 1 PERSON ASSISTANCE AND GAIT BELT. PATIENT ABLE TO WALK WTIH OUT ANY ISSUE BUT STAND BY IS THERE IF ANY ISSUE NEEDED. PATIENT ATE ABOUT 100% OF HIS FOOD.
--- NOTE | 2021-12-20 13:16 | NUR ---
Follow-up visit; Patient thanked Nursing Staffing Coordinator for stopping in to see him and wish him well as he will be leaving tomorrow. Nursing Staffing Coordinator told him to keep doing what he's doing as it is working for him. Nursing Staffing Coordinator offered the Peace of the Lord be with him.
--- NOTE | 2021-12-20 15:03 | NUR ---
pATIENT IS MOD I NOW. PATIENT WAS INFORM NOT TO LEAVE ROOM AND HE NEED TO USE THE CANE TO KEEP THE STATUS OF SHARIF PATIENT UNDERSTOOD.
[2021-12-20 17:02] VITALS: BP 125/88; PULSE 103; TEMP 98.5
--- NOTE | 2021-12-20 20:00 | NUR ---
PT MOD I IN ROOM. RESTING IN BED AT PRESENT TIME. REMINDED PT WITH SLEEPING AID TONIGHT HE MIGHT BE ALITTLE UNSTEADY AND TO PLEASE CALL STAFF. PT AGREED. CALL LIGHT IN REACH.
--- NOTE | 2021-12-20 23:06 | NUR ---
PT VERY ANXIOUS. ATIVAN GIVEN. ENC PT TO CALL FOR ASSIST IF NEEDING UP. PT AGREED. BED ALAEM SET.
[2021-12-21 05:36] VITALS: BP 121/75; PULSE 78; TEMP 97.7
--- NOTE | 2021-12-21 06:44 | NUR ---
BEDSIDE REPORT DONE ORDER. PATIENT RESTING IN BED CALL LIGHT IN REACH.
[2021-12-21] MEDS ORDERED: LIPITOR20 MG PO (08:39)
[2021-12-21] MEDS ORDERED: PLAVIX 75MG TAB75 MG PO (08:39)
[2021-12-21] MEDS ORDERED: ASPIRIN 81M81 MG/TA2 PO (08:39)
[2021-12-21] MEDS ORDERED: VOLTAREN GEL 1%1 TU TP (08:40)
[2021-12-21] MEDS ORDERED: REMERON 15M15 MG/TA1 PO (08:40)
[2021-12-21] MEDS ORDERED: ATARAX 25MG25 MG/TAB PO (08:41)
[2021-12-21] MEDS ORDERED: MELATONIN3 M1 PO (08:41)
--- NOTE | 2021-12-21 08:57 | NUR ---
ASSESSMENT DONE ORDER. PATIENT ALERTX 4 WITH NO MEMORY ISSUE. PATIENT DISCHARGING TODAY. LUNG CLEAR IN ALL LOBES. BOWEL SOUND ACTIVE IN ALL 4 QUADS. APPETITE GOOD, EATING ABOUT 100% OF HIS MEALS. PATIENT IS NOW MOD I IN ROOM. CALL LIGHT IN REACH.
--- NOTE | 2021-12-21 10:48 | NUR ---
Master Machinist faxed discharge orders to [facility]. SW contacted [facility] and advised them orders were faxed.
--- NOTE | 2021-12-21 11:00 | NUR ---
DISCHARGE INSTRUCTION WAS DONE ORDER. PATIENT WAS VERY ANXIOUS TO LEAVE THE FACILITY. PATIENT AND SPOUSE WAS AWARE OF NEW MEDICATION. GAVE COPY OF ALL INSTRUCTION OF NEW MEDIATION. EDUCATED ABOUT FALL RISK AND STOP SMOKING. PATIENT UNDERSTOOD. WHEEL PATIENT OUT THROUGH THE ER. PATIENT WAS ABLE TO GET IN THE CAR WITH OUT ANYISSUE.
--- NOTE | 2021-12-21 14:35 | NUR ---
Discharge QIM scores were reviewed by the team. Code of 6 chosen for walk 10 feet was determined by team discussion to be the most usual performance for this patient during the discharge assessment period. Code of 6 chosen for walk 50 feet w/ 2 turns was determined by team discussion to be the most usual performance for this patient during the discharge assessment period. Code of 6 chosen for walk 150 feet was determined by team discussion to be the most usual performance for this patient during the discharge assessment period.--[place]isell [place], PD
== END 2021-12-21 11:00 | disposition home or self-care (01) | DRG 57 ==
PROVIDERS: Physician Assistant; ADMIT Physical Medicine & Rehabilitation Sports Medicine
DX: I69.354 Hemiplegia and hemiparesis following cerebral infarction affecting left non-dominant side (principal); R45.851 Suicidal ideations; I69.392 Facial weakness following cerebral infarction; I69.322 Dysarthria following cerebral infarction; R26.89 Other abnormalities of gait and mobility; Z66 Do not resuscitate; G47.00 Insomnia, unspecified; F17.210 Nicotine dependence, cigarettes, uncomplicated; Z98.1 Arthrodesis status; Z88.5 Allergy status to narcotic agent; Z91.040 Latex allergy status; Z88.8 Allergy status to other drugs, medicaments and biological substances; Z79.82 Long term (current) use of aspirin; Z79.899 Other long term (current) drug therapy; Z73.6 Limitation of activities due to disability; K59.00 Constipation, unspecified; I80.8 Phlebitis and thrombophlebitis of other sites; R21 Rash and other nonspecific skin eruption
CPT/HCPCS: 99223; L1930

== ENCOUNTER → 2022-01-09 | Outpatient (RCR) | payer BC ==
[~2022-01-09] MED LIST changes: +ASPIRIN 81M81 MG/TA2 PO; +ATARAX 25MG25 MG/TAB PO; +LIPITOR20 MG PO; +MELATONIN3 M1 PO; +PLAVIX 75MG TAB75 MG PO; +REMERON 15M15 MG/TA1 PO; +VOLTAREN GEL 1%1 TU TP
== END | disposition home or self-care (01) ==
LOC: MKS.ESL.OT → MKS.ESL.PT 12-24 13:45 → WSST 12-24 13:45 → MKS.ESL.PT 12-24 15:07 → MKS.ESL.OT 12-31 16:00
DX: I69.359 Hemiplegia and hemiparesis following cerebral infarction affecting unspecified side (principal)

== ENCOUNTER → 2022-01-18 | Outpatient (CLI) | payer BC | LOC: MHCPAIN 12:56 | DX: I63.9 Cerebral infarction, unspecified (principal); I69.359 Hemiplegia and hemiparesis following cerebral infarction affecting unspecified side; M25.512 Pain in left shoulder; F32.A Depression, unspecified | CPT/HCPCS: G0463 ==

== ENCOUNTER → 2022-03-08 | Outpatient (CLI) | payer BC | LOC: COL.LAB 17:28 | DX: F15.20 Other stimulant dependence, uncomplicated (principal) ==

== ENCOUNTER 2022-06-10 15:30 | Outpatient (RCR) | payer BC | END 2022-06-11 | disposition home or self-care (01) | LOC: MKS.ESL.OT | DX: I69.352 Hemiplegia and hemiparesis following cerebral infarction affecting left dominant side (principal) ==

== ENCOUNTER → 2022-07-08 | Outpatient (CLI) | payer BC | LOC: MHCPAIN 10:12 | DX: M25.512 Pain in left shoulder (principal); I69.352 Hemiplegia and hemiparesis following cerebral infarction affecting left dominant side | CPT/HCPCS: G0463 ==

== ENCOUNTER 2022-08-08 16:41 | Outpatient (RCR) | payer BC | END 2022-08-08 16:50 | LOC: MKS.ESL.OT 16:41 | DX: I63.9 Cerebral infarction, unspecified (principal); G81.94 Hemiplegia, unspecified affecting left nondominant side ==

== ENCOUNTER 2023-05-22 08:57 | Emergency (ER) | payer BC ==
[~2023-05-22] VITALS: Ht 182.9 cm; Wt 81.8 kg
[2023-05-22 09:10] VITALS: TEMP 98.4
[2023-05-22] MEDS ORDERED: NS 1,000 ML IV ONE (11:45)
[2023-05-22 12:07] LABS: BASO % 0.2 % (0.0-2.0); EOS # 0.1 K/mm3 (0.0-0.7); GRAN # 10.2 K/mm3 (1.4-6.5); GRAN % 78.3 % (42.2-75.2); HEMATOCRIT 46.8 % (42.0-52.0); HEMOGLOBIN 15.5 g/dl (13.5-18.0); LYMPH # 1.4 K/mm3 (1.2-3.4); LYMPH % 10.7 % (20.0-51.0); MEAN CELL VOLUME 92 fl (80.0-100.0); MEAN CORPUSCULAR HEMOGLOBIN 31 pg (27-31); MEAN CORPUSCULAR HGB CONC 33 g/dl (33.0-37.0); MEAN PLATELET VOLUME 11.8 fl (7.4-10.4); MONO # 1.2 K/mm3 (0.1-0.6); MONO % 9.4 % (1.7-9.3); PLATELET COUNT 176 K/mm3 (130-400); RED BLOOD COUNT 5.09 M/mm3 (4.20-5.60); REDCELL DISTRIBUTION WIDTH-CV 14.4 % (11.5-14.5)
[2023-05-22 12:38] LABS: ALBUMIN 3.4 gm/dL (3.5-5.0); BILIRUBIN,TOTAL 1.4 mg/dL (0.2-1.2); CALCIUM 9.3 mg/dL (8.4-10.2); CREATININE, serum 0.86 mg/dL (0.72-1.25); POTASSIUM 3.4 mmol/L (3.5-4.5); TOTAL PROTEIN 6.3 gm/dL (6.2-8.1)
[2023-05-22 13:20] VITALS: BP 109/83; PULSE 84
[2023-05-22 15:15] LABS: CLOSTRIDIUM DIFF A/B POS
[2023-05-22] MEDS ORDERED: VANCOCIN H125 MG/CAP PO (15:22)
== END 2023-05-22 13:33 | disposition home or self-care (01) ==
LOC: COL.ER 08:57
PROVIDERS: Physician Assistant
DX: K52.9 Noninfective gastroenteritis and colitis, unspecified (principal); F17.210 Nicotine dependence, cigarettes, uncomplicated; Z91.040 Latex allergy status
CPT/HCPCS: J7030